=== PATIENT | female | born 2000 | race Hispanic/Latino ===

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

== ENCOUNTER 2021-07-12 14:57 | Emergency (ER) | payer OTHER ==
[~2021-07-12 14:57] MED LIST: Iopamidol-370 76% 500 ML 1 ML ONE
[2021-07-12 15:28] LABS: #Lymphocytes 1.8 thou/uL (1.20-3.40); #Monocytes 0.3 thou/uL (0.11-0.59); #Neutrophils 4.3 thou/uL (1.40-6.50); %Basophils 0.2 % (0.0-1.0); %Eosinophils 0.5 % (0.0-10.0); %Lymphocytes 28.3 % (28.0-48.0); %Monocytes 4.9 % (0.0-4.0); %Neutrophils 65.9 % (31.0-61.0); Hemoglobin 14.1 g/dL (12.0-16.0); Mean Corpuscular HGB CONC 34.3 g/dL (32.0-36.0); Mean Corpuscular Hemoglobin 31.3 pg (25.0-35.0); Mean Corpuscular Volume 91.3 fL (78.0-98.0); Mean Platelet Volume 9.4 fL (7.4-10.4); Platelet Count 148 thou/uL (130-400); RBC Distribution Width 11.3 % (11.5-14.5); Red Blood Cell (RBC) Count 4.49 mill/uL (4.00-5.20); White Blood Cell (WBC) Count 6.4 thou/uL (4.8-10.8)
[2021-07-12 15:41] LABS: BHCG - Serum Negative (NEGATIVE); Pregs Control Background? CLEAR/WHITE (CLR/WHITE); Pregs Control Bar Appear? YES (CONTROL BAR)
[2021-07-12 15:52] LABS: ALT (SGPT) Less than 7 U/L (8-55); AST (SGOT) 14 U/L (5-34); Albumin 4.5 g/dL (3.5-5.0); Alkaline Phosphatase 82 U/L (40-100); Anion Gap 12 mmol/L (10-20); BUN (Urea Nitrogen) 11 mg/dL (7.0-18.7); Calc. Creatinine Clearance 0 mL/min (70-130); Calcium 9.6 mg/dL (7.8-10.44); Carbon Dioxide 25 mmol/L (22-29); Chloride 107 mmol/L (98-107); Globulin 2.8 g/dL (2.4-3.5); Glucose 98 mg/dL (70-105); Lipase 32 U/L (8-78); Potassium 3.9 mmol/L (3.5-5.1); Protein, Total 7.3 g/dL (6.0-8.3); Sodium 140 mmol/L (136-145)
[2021-07-12 17:15] LABS: Bacteria/HPF None Seen HPF (None Seen); Bilirubin Negative (Negative); Blood, Urine 2+ (Negative); Clarity Clear (Clear); Glucose, Urine (Dipstick) Normal (Negative); Ketone, Urine Negative (Negative); Leukocyte 25 Leu/uL (Negative); Nitrite Negative (Negative); Protein, Urine (Dipstick) 10 mg/dL (Neg-Trace); RBC/HPF 0-3 HPF (0-3); Specific Gravity, Urine 1.027 (1.002-1.036); Urobilinogen Normal mg/dL (Less than 2); WBC/HPF 0-3 HPF (0-3)
[2021-07-12] MEDS ORDERED: Ondansetron PF 4 MG/2 ML Vial ONE (17:31)
[2021-07-12] MEDS ORDERED: Famotidine/PF 20 mg/2ml Vial ONE (17:32)
[2021-07-14 06:34] LABS: Chlamydia by PCR Not Detected (NotDetected); GC by PCR Not Detected (NotDetected)
== END 2021-07-12 18:58 | disposition home or self-care (01) ==
LOC: ERS 14:57
DX: N89.8 Other specified noninflammatory disorders of vagina (principal); R10.31 Right lower quadrant pain; R07.9 Chest pain, unspecified; R11.2 Nausea with vomiting, unspecified; R19.7 Diarrhea, unspecified
CPT/HCPCS: 36415; 71045; 74177; 80053; 81003; 81015; 83690; 84703; 85025; 86140; 87480; 87491; 87510; 87591; 87660; 94760; 96372; 96374; 96375; J0500; J2405; Q9967; S0028

== ENCOUNTER 2023-11-29 14:25 | Emergency (ER) | payer OTHER ==
[2023-11-29] MEDS ORDERED: Bicillin LA 1.2 MILLION UNITS/2 ML SYRINGE ONE (15:40)
[2023-11-29] MEDS ORDERED: Dexamethasone 10 MG/ML VIAL ONE (15:40)
== END 2023-11-29 17:07 | disposition home or self-care (01) ==
LOC: ERS 14:25
DX: J02.0 Streptococcal pharyngitis (principal); R21 Rash and other nonspecific skin eruption
CPT/HCPCS: 96372; 99283; J0561; J1100

== ENCOUNTER 2024-08-25 01:15 | Observation (INO) | payer OTHER, SELFPAY ==
[2024-08-25 01:49] LABS: #Basophils Less than 0.03 10x3/uL (0.0-0.2); %Basophils 0.2 % (0.0-1.0); %Eosinophils 0.9 % (0.0-10.0); %Lymphocytes 23.5 % (21.0-51.0); %Monocytes 5.4 % (0.0-10.0); %Neutrophils 69.7 % (42.0-75.0); Hematocrit 40.2 % (36.0-47.0); Hemoglobin 13.7 g/dL (12.0-16.0); Mean Corpuscular HGB CONC 34.1 g/dL (32.0-36.0); Mean Corpuscular Hemoglobin 30.1 pg (27.0-31.0); Mean Corpuscular Volume 88.4 fL (78.0-98.0); Mean Platelet Volume 10.8 fL (7.4-10.4); Platelet Count 170 10x3/uL (130-400); RBC Distribution Width 11.9 % (11.5-14.5); Red Blood Cell (RBC) Count 4.55 mill/uL (4.20-5.40)
[2024-08-25 02:00] LABS: BHCG - Serum Negative (NEGATIVE); Pregs Control Background? CLEAR/WHITE (CLR/WHITE); Pregs Control Bar Appear? YES (CONTROL BAR)
[2024-08-25 02:04] LABS: ALT (SGPT) 6 U/L (8-55); AST (SGOT) 17 U/L (5-34); Albumin 4.2 g/dL (3.5-5.0); Alkaline Phosphatase 85 U/L (40-110); Anion Gap 14 mmol/L (10-20); BUN (Urea Nitrogen) 13 mg/dL (7.0-18.7); Bilirubin, Total 0.5 mg/dL (0.2-1.2); Calc. Creatinine Clearance 0 mL/min (70-130); Calcium 9.5 mg/dL (7.8-10.44); Carbon Dioxide 20 mmol/L (22-29); Chloride 105 mmol/L (98-107); Estimated GFR 120; Globulin 3.2 g/dL (2.4-3.5); Glucose 117 mg/dL (70-105); Lipase 28 U/L (8-78); Potassium 4.3 mmol/L (3.5-5.1); Protein, Total 7.4 g/dL (6.0-8.3); Sodium 135 mmol/L (136-145)
[2024-08-25] MEDS ORDERED: Ketorolac Tromethamine 30 MG (1 mL) VIAL ONE (03:39)
[2024-08-25] MEDS ORDERED: Ondansetron PF 4 MG/2 ML Vial ONE ×2 (03:39→13:47)
[2024-08-25 04:55] LABS: Bacteria/HPF 2+ HPF (None Seen); Bilirubin Negative (Negative); Blood, Urine Negative (Negative); CAUTI Indications for Culture Pelvic or flank pain; Clarity Clear (Clear); Glucose, Urine (Dipstick) Normal (Negative); Ketone, Urine 60 mg/dL (Negative); Leukocyte Negative Leu/uL (Negative); Mucous/LPF Rare LPF (<2+); Nitrite Negative (Negative); Protein, Urine (Dipstick) 20 mg/dL (Neg-Trace); Specific Gravity, Urine 1.037 (1.002-1.036); Squamous Epithelial 0-3 HPF (0-3); WBC/HPF 0-3 HPF (0-3); pH, Urine 5.5 (5.0-9.0)
[2024-08-25 04:56] LABS: Urine Culture Reflex No No
[2024-08-25] MEDS ORDERED: Ondansetron PF 4 MG/2 ML Vial IVP PRN (05:45)
[2024-08-25] MEDS ORDERED: Morphine 4 MG/ML VIAL ONE (05:45)
[2024-08-25] MEDS ORDERED: Piperacillin/Tazobactam 4.5 GM VIAL ONE (05:45)
[2024-08-25] MEDS ORDERED: Morphine 4 MG/ML VIAL SLOW IVP PRN (05:45)
[2024-08-25] MEDS ORDERED: Ondansetron ODT 4 MG TAB SL PRN (05:45)
[2024-08-25] MEDS ORDERED: Sodium Chloride 0.9% 100 ML ONE (05:46)
[2024-08-25] MEDS ORDERED: Morphine 2 MG/ML VIAL SLOW IVP PRN (06:21)
[2024-08-25] MEDS ORDERED: traMADol HCl 50 MG TAB PO PRN (06:21)
[2024-08-25] MEDS ORDERED: Ibuprofen 600 MG TAB PO PRN ×2 (06:21→14:41)
[2024-08-25 08:27] VITALS: BMI 34.0
[2024-08-25] MEDS: Sodium Chloride 0.9% 1,000 ML IV SCH (09:57)
[2024-08-25] MEDS: Ketorolac Tromethamine 30 MG (1 mL) VIAL IVP SCH ×2 (09:57→09:59)
[2024-08-25] MEDS: Piperacillin/Tazobactam 3.375 GM in Sodium Chloride 0.9% 100 ML IVPB SCH (09:57)
[2024-08-25] MEDS: Scopolamine 1 mg/72 hour Patch TD SCH (09:58)
[2024-08-25] MEDS: Acetaminophen 500 MG TAB PO SCH (09:59)
[2024-08-25] MEDS ORDERED: traMADol HCl 50 MG TAB PO SCH (12:00)
[2024-08-25] MEDS ORDERED: Acetaminophen 325 MG TAB PO SCH (12:00)
[2024-08-25] MEDS ORDERED: PROPOFOL 20 ML ONE (13:06)
[2024-08-25] MEDS ORDERED: Midazolam HCl 2 mg/2 ml Vial ONE (13:06)
[2024-08-25] MEDS ORDERED: fentaNYL PF 100 MCG/2 ML SYRINGE ONE ×2 (13:06→14:33)
[2024-08-25] MEDS ORDERED: Bupivacaine PF 0.5% 30 ML VIAL ONE (13:09)
[2024-08-25] MEDS ORDERED: EPINEPHrine 1 MG/ML VIAL ONE (13:09)
[2024-08-25] MEDS ORDERED: Lidocaine 1% PF 5 ML VIAL ONE (13:31)
[2024-08-25] MEDS ORDERED: Rocuronium Bromide 10 MG/ML (10ML VIAL) ONE (13:31)
[2024-08-25] MEDS ORDERED: Dexamethasone 20 MG/5 ML VIAL ONE (13:47)
[2024-08-25] MEDS ORDERED: Ketamine In 0.9 % NaCl 50 MG/5 ML SYRINGE ONE (13:48)
[2024-08-25] MEDS ORDERED: SUGAMMADEX SODIUM 200 MG/2 ML VIAL ONE (14:13)
[2024-08-25] MEDS ORDERED: Meperidine HCl/PF 25 MG (1 mL) VIAL ONE (14:32)
[2024-08-25] MEDS ORDERED: fentaNYL 50 mcg/mL 1 mL Vial ONE (14:51)
[2024-08-25] MEDS: traMADol HCl 50 MG TAB PO PRN (16:48)
[2024-08-25 19:34] VITALS: BP 110/73; TEMP 98
== END 2024-08-25 19:48 | disposition home or self-care (01) ==
LOC: ERS 01:15 → MSONC 07:46
PROVIDERS: ADMIT Student in an Organized Health Care Education/Training Program; ATTEND Student in an Organized Health Care Education/Training Program
PROC: 0FT44ZZ Resection of Gallbladder, Percutaneous Endoscopic Approach (ICD-10-PCS; principal; 2024-08-25)
DX: K80.12 Calculus of gallbladder with acute and chronic cholecystitis without obstruction (principal)
CPT/HCPCS: 36415; 76705; 80053; 81001; 83690; 84703; 85025; 88304; 93005; 96365; 96375; C1889; G0378; J0171; J0665; J1100; J1885; J2175; J2250; J2272; J2405; J2543; J2704; J3010; J3490; J7030